=== PATIENT | male | born 1935 | race Caucasian/White ===

== ENCOUNTER 2016-09-08 07:27 | Emergency (ER) | payer MEDICARE, OTHER ==
[~2016-09-08] VITALS: Ht 30.5 cm; Wt 0.5 kg
[2016-09-08 07:31] VITALS: BP 0/0
[2016-09-08] MEDS ORDERED: EPINEPHrine HCL 1 MG/10 ML SYRG IV ONE ×2 (13:51→13:54)
[2016-09-08] MEDS ORDERED: CALCIUM CHL(10%) 100MG/ML 10ML VIAL IV ONE (13:51)
== END 2016-09-08 12:11 | disposition expired ==
LOC: EDBD 07:27 → EDUNIT# 07:27 → ER 07:32 → EDSEX 07:32 → ER 12:11
DX: I46.9 Cardiac arrest, cause unspecified (principal); R41.82 Altered mental status, unspecified; E66.01 Morbid (severe) obesity due to excess calories; Z68.44 Body mass index [BMI] 60.0-69.9, adult
CPT/HCPCS: 31500; 92950; 99291; J0171